=== PATIENT | male | born 1940 | race African-American/Black ===

== ENCOUNTER 2016-11-24 12:20 | Day surgery (SDC) | payer BC ==
[2016-11-20 20:20] LABS: HEMATOCRIT 40.2 % (40.0-51.0); HEMOGLOBIN 12.8 g/dL (13.6-17.8)
[2016-11-20 20:37] LABS: BUN (BLOOD UREA NITROGEN) 27 MG/DL (6-23); CALCIUM, SERUM 8.9 MG/DL (8.5-10.4); CHLORIDE, SERUM 105 MMOL/L (96-112); CO2 (CARBON DIOXIDE) 29 MMOL/L (24-34); CREATININE 1.51 MG/DL (0.70-1.30); GFR AFRICAN AMERICAN 51 ML/MIN (>=60); GFR NON AFRICAN AMERICAN 44 ML/MIN (>=60); GLUCOSE, SERUM 89 MG/DL (60-99); POTASSIUM, SERUM 4.3 MMOL/L (3.5-5.3); SODIUM, SERUM 142 MMOL/L (135-148)
[2016-11-21 14:51] LABS: BASOPHILS 0.4 %; BASOPHILS ABSOLUTE 0.02 10/3/uL (0.0-0.16); EOSINOPHILS 7.7 %; EOSINOPHILS ABSOLUTE 0.38 10/3/uL (0.0-0.53); IMMATURE GRANULOCYTES 0.2 %; IMMATURE GRANULOCYTES ABSOLUTE 0.01 10/3/uL (0.0-0.11); LYMPHOCYTES 40.1 %; LYMPHOCYTES ABSOLUTE 1.98 10/3/uL (0.67-4.30); MEAN CORPUS HGB CONC 31.4 g/dL (32.0-36.0); MEAN CORPUSCULAR HEMOGLOB 26.5 pg (26.0-34.0); MEAN PLATELET VOLUME 9.9 fL (9.2-13.0); MONOCYTES 6.9 %; MONOCYTES ABSOLUTE 0.34 10/3/uL (0.21-1.20); NEUTROPHILS 44.7 %; NEUTROPHILS ABSOLUTE 2.21 10/3/uL (2.02-8.40); PLATELET COUNT 207 10/3/uL (150-400); RBC DISTRIBUTION WIDTH 14.5 % (12.0-16.0); WHITE BLOOD CELLS 4.9 10/3/uL (4.5-10.5)
[2016-11-21 14:53] LABS: MANUAL DIFF NO %; MEAN CORPUSCULAR VOLUME 84.2 fL (80-100)
[~2016-11-24 12:20] MED LIST: ASAB PO; AUG500 PO; AUG875 PO; Aspirin PO; CEFT5 PO; FLOMAX4 PO; GLUCOPHAGE1000 MG; GLUCOPHAGE1000 MG PO; GLUCOTROL5 PO; GLUCPH PO; IODOSORB TOP; L20 PO; LANTUS; LANTUS SC; LANTUSCART SC; LEVAQUIN750 MG PO; LEVEMFLXPN SC; LISINOPRIL40 MG PO; LOP25 PO; MYLUD PO; NEUR300 PO; NORV5 PO; NOVOPEN SC; PLAVIX PO; ROLAIDS PO; VITAMIN C OTC PO; VITAMIN D1000 UNI1 PO; VITAMIN D31000 UNIT PO; ZESTRIL10 MG PO; ZOCOR40 PO
== END 2016-11-24 23:59 | disposition home or self-care (01) ==
LOC: SDC 12:20
PROVIDERS: Surgery
DX: I70.233 Atherosclerosis of native arteries of right leg with ulceration of ankle (principal); Z53.9 Procedure and treatment not carried out, unspecified reason; I83.013 Varicose veins of right lower extremity with ulcer of ankle; E11.622 Type 2 diabetes mellitus with other skin ulcer; L97.319 Non-pressure chronic ulcer of right ankle with unspecified severity; E11.42 Type 2 diabetes mellitus with diabetic polyneuropathy; Z86.73 Personal history of transient ischemic attack (TIA), and cerebral infarction without residual deficits; Z98.890 Other specified postprocedural states; Z89.512 Acquired absence of left leg below knee; Z83.3 Family history of diabetes mellitus; Z80.9 Family history of malignant neoplasm, unspecified; Z88.1 Allergy status to other antibiotic agents; Z79.84 Long term (current) use of oral hypoglycemic drugs; Z79.899 Other long term (current) drug therapy
CPT/HCPCS: 36415; 80048; 82962; 85014; 85018; 85025; 93005; A9270-GY; J2250; J3010; Q9966